=== PATIENT | female | born 1995 | race Caucasian/White ===

== ENCOUNTER 2021-11-08 21:46 | Emergency (ER) | payer MEDICAID, OTHER ==
[~2021-11-08] VITALS: Ht 180.3 cm; Wt 113.4 kg
[2021-11-08 21:54] VITALS: BP 131/81
--- NOTE | 2021-11-08 22:31 | NUR ---
Dr. Bhatt at chair B to exam patient.
[2021-11-08] MEDS ORDERED: IBUP-2218 PO (22:50)
[2021-11-08] MEDS ORDERED: KETOROLAC 60 MG/2 ML VIAL IM ONE (22:50)
[2021-11-08 23:29] VITALS: BP 131/81
== END 2021-11-08 23:29 | disposition home or self-care (01) ==
LOC: MED 21:46
DX: M54.50 Low back pain, unspecified (principal); Z79.899 Other long term (current) drug therapy
CPT/HCPCS: 81025; 96372; 99283; J1885

== ENCOUNTER 2022-10-29 12:32 | Emergency (ER) | payer MEDICAID ==
[~2022-10-29] VITALS: Ht 177.8 cm; Wt 83.9 kg
[~2022-10-29 12:32] MED LIST: IBUP-2218 PO
[2022-10-29 12:39] VITALS: BP 131/75
[2022-10-29] MEDS ORDERED: KETOROLAC 30 MG/ML VIAL IM ONE (14:20)
[2022-10-29 14:33] LABS: APPEARANCE,URINE CLEAR (CLEAR); BILIRUBIN,URINE NEGATIVE (NEGATIVE); BLOOD, URINE TRACE-I (NEGATIVE); COLOR,URINE YELLOW (YELLOW); LEUKOCYTE ESTERASE ,URINE 2+ (NEGATIVE); NITRITE, URINE NEGATIVE (NEGATIVE); UGLUCOSE NEGATIVE (NEGATIVE)
[2022-10-29 14:50] LABS: RBC,URINE 0-5 /HPF (0-5); WBC,URINE 0-5 /HPF (0-5)
[2022-10-29] MEDS ORDERED: GABA100C PO (15:15)
[2022-10-29] MEDS ORDERED: PYR100 PO (15:15)
[2022-10-29] MEDS ORDERED: NITR100C7 PO (15:15)
[2022-10-29] MEDS ORDERED: IBUP-2213 PO (15:15)
[2022-10-29 15:22] VITALS: BP 118/68
--- NOTE | 2022-10-29 15:23 | NUR ---
Patient discharged with v/s stable. Written and verbal after care instructions given and explained. Patient alert, oriented and verbalized understanding of instructions. Ambulatory with steady gait. All questions addressed prior to discharge. ID band removed. Patient advised to follow up with PMD. Rx of MACROBID, PYRIDIUM, NEURONTIN given. Patient educated on indication of medication including possible reaction and side effects. Opportunity to ask questions provided and answered.
== END 2022-10-29 15:22 | disposition home or self-care (01) ==
LOC: MED 12:32
DX: N39.0 Urinary tract infection, site not specified (principal); M54.16 Radiculopathy, lumbar region; Z79.899 Other long term (current) drug therapy; Z79.2 Long term (current) use of antibiotics; Z79.1 Long term (current) use of non-steroidal anti-inflammatories (NSAID)
CPT/HCPCS: 81001; 81025; 87086; 96372; 99283; J1885

== ENCOUNTER 2023-07-24 01:07 | Emergency (ER) | payer SELFPAY ==
[~2023-07-24] VITALS: Ht 180.3 cm; Wt 129.3 kg
[~2023-07-24 01:07] MED LIST changes: +GABA100C PO; +IBUP-2213 PO; +NITR100C7 PO; +PYR100 PO
[2023-07-24 01:17] VITALS: BP 114/67; PULSE 71; RESP 12; TEMP 97.9; O2SAT 100
[2023-07-24] MEDS ORDERED: BUPIVACAINE-MPF 0.25% 30 ML VIAL INJ ONE (01:55)
[2023-07-24] MEDS ORDERED: IBUPROFEN 600 MG TAB PO ONE (01:55)
[2023-07-24] MEDS ORDERED: PENICILLIN V POTASSIUM 250 MG TAB PO ONE (01:55)
[2023-07-24] MEDS ORDERED: ACET-8905 PO (02:29)
[2023-07-24] MEDS ORDERED: PENI500T20 PO (02:29)
[2023-07-24] MEDS ORDERED: IBUP-2218 PO (02:29)
== END 2023-07-24 02:35 | disposition home or self-care (01) ==
LOC: MED 01:07
DX: K02.9 Dental caries, unspecified (principal); Z79.899 Other long term (current) drug therapy; Z79.1 Long term (current) use of non-steroidal anti-inflammatories (NSAID); Z79.2 Long term (current) use of antibiotics
CPT/HCPCS: 64400; 99284; J3490

== ENCOUNTER 2023-11-24 15:29 | Emergency (ER) | payer MEDICAID ==
[~2023-11-24] VITALS: Ht 177.8 cm; Wt 99.8 kg
[~2023-11-24 15:29] MED LIST changes: +ACET-8905 PO; +PENI500T20 PO
[2023-11-24 15:36] VITALS: BP 115/68; PULSE 85; RESP 18; TEMP 96.3; O2SAT 99
[2023-11-24] MEDS: ACETAMINOPHEN/CODEINE 300/30MG 1 TAB PO ONE (16:18)
[2023-11-24 16:26] LABS: BILIRUBIN,URINE NEGATIVE (NEGATIVE); BLOOD, URINE 2+ (NEGATIVE); COLOR,URINE YELLOW (YELLOW); LEUKOCYTE ESTERASE ,URINE 1+ (NEGATIVE); NITRITE, URINE NEGATIVE (NEGATIVE); PROTEIN,URINE NEGATIVE (NEGATIVE); UGLUCOSE NEGATIVE (NEGATIVE); UROBILINOGEN,URINE 0.2 EU/dL (0.2 - 1)
[2023-11-24 16:27] LABS: APPEARANCE,URINE SLIGHTLY CLOUDY (CLEAR)
[2023-11-24 16:28] LABS: WBC,URINE 0-5 /HPF (0-5)
[2023-11-24 16:29] LABS: BACTERIA,URINE 1+ /HPF (None Seen); MUCUS,URINE None Seen /LPF (None Seen); SQUAMOUS EPITHELIAL CELL,UR 0-3 (FEW) /LPF (0-3 (FEW))
[2023-11-24 17:06] LABS: BASOPHILS % (AUTO) 0.5 % (0.0-2.0); EOSINOPHILS # (AUTO) 0.2 K/uL (0-0.4); EOSINOPHILS % (AUTO) 2.8 % (0.0-4.0); HEMATOCRIT 34.7 % (36-48); HEMOGLOBIN 11.3 g/dL (12.0-16.0); LYMPHOCYTES # (AUTO) 2.6 K/uL (2.5-16.5); MEAN CORPUSCULAR HEMOGLOBIN 25 pg (27-31); MEAN CORPUSCULAR HGB CONC 33 g/dL (33-37); MEAN CORPUSCULAR VOLUME 77.2 fL (80-94); MONOCYTES # (AUTO) 0.6 K/uL (0.8-1.0); MONOCYTES % (AUTO) 7.3 % (1.7-9.3); NEUTROPHILS # (AUTO) 5.3 K/uL (1.8-7.7); NEUTROPHILS % (AUTO) 60.4 % (42.2-75.2); PLATELET COUNT (AUTO) 273 K/uL (140-450); RED BLOOD CELL COUNT(AUTO) 4.49 MIL/uL (4.20-5.40); RED CELL DISTRIBUTION WIDTH 14.7 % (11.6-13.7); WHITE BLOOD COUNT (AUTO) 8.8 K/uL (4.8-10.8)
[2023-11-24] MEDS ORDERED: METR-435 PO (17:33)
[2023-11-24] MEDS ORDERED: CEPH-588 PO (17:33)
[2023-11-24] MEDS ORDERED: IBUP-2218 PO (17:33)
[2023-11-24 17:42] VITALS: BP 121/65; PULSE 94; RESP 18; TEMP 97.2; O2SAT 99
== END 2023-11-24 17:42 | disposition home or self-care (01) ==
LOC: MED 15:29
DX: N93.9 Abnormal uterine and vaginal bleeding, unspecified (principal); N39.0 Urinary tract infection, site not specified; N88.8 Other specified noninflammatory disorders of cervix uteri; N76.0 Acute vaginitis; Z79.1 Long term (current) use of non-steroidal anti-inflammatories (NSAID); Z79.899 Other long term (current) drug therapy
CPT/HCPCS: 36415; 76856; 81001; 81025; 85025; 87086; 87210; 87491; 93976; 99284; Q0092

== ENCOUNTER 2024-05-19 09:20 | Inpatient (IN) | payer MEDICAID ==
[~2024-05-19] VITALS: Ht 180.3 cm; Wt 113.4 kg
[~2024-05-19 09:20] MED LIST changes: +CEPH-588 PO; +METR-435 PO
[2024-05-19 09:26] VITALS: BP 119/64; PULSE 75; RESP 18; TEMP 98.6; O2SAT 98
[2024-05-19 10:40] LABS: BILIRUBIN,URINE NEGATIVE (NEGATIVE); BLOOD, URINE 2+ (NEGATIVE); COLOR,URINE YELLOW (YELLOW); LEUKOCYTE ESTERASE ,URINE 2+ (NEGATIVE); NITRITE, URINE NEGATIVE (NEGATIVE); PROTEIN,URINE NEGATIVE (NEGATIVE); UGLUCOSE NEGATIVE (NEGATIVE); UROBILINOGEN,URINE 0.2 EU/dL (0.2 - 1)
[2024-05-19 10:40] LABS: BASOPHILS % (AUTO) 0.6 % (0.0-2.0); EOSINOPHILS # (AUTO) 0.2 K/uL (0-0.4); EOSINOPHILS % (AUTO) 3.1 % (0.0-4.0); HEMATOCRIT 34.8 % (36-48); HEMOGLOBIN 11.1 g/dL (12.0-16.0); LYMPHOCYTES # (AUTO) 1.8 K/uL (2.5-16.5); LYMPHOCYTES % (AUTO) 25.8 % (20.5-51.1); MEAN CORPUSCULAR HEMOGLOBIN 24 pg (27-31); MEAN CORPUSCULAR HGB CONC 32 g/dL (33-37); MEAN CORPUSCULAR VOLUME 76.3 fL (80-94); MONOCYTES # (AUTO) 0.5 K/uL (0.8-1.0); MONOCYTES % (AUTO) 7.1 % (1.7-9.3); NEUTROPHILS # (AUTO) 4.4 K/uL (1.8-7.7); NEUTROPHILS % (AUTO) 63.4 % (42.2-75.2); PLATELET COUNT (AUTO) 252 K/uL (140-450); RED BLOOD CELL COUNT(AUTO) 4.57 MIL/uL (4.20-5.40); RED CELL DISTRIBUTION WIDTH 15.4 % (11.6-13.7)
[2024-05-19 10:50] LABS: APPEARANCE,URINE SLIGHTLY CLOUDY (CLEAR)
[2024-05-19 10:56] LABS: BACTERIA,URINE 2+ /HPF (None Seen); MUCUS,URINE None Seen /LPF (None Seen); SQUAMOUS EPITHELIAL CELL,UR 4-10 (MOD) /LPF (0-3 (FEW))
[2024-05-19 11:06] LABS: ALBUMIN 3.3 g/dL (3.4-5.0); ANION GAP 10.3 (8-16); CALCIUM 8.3 mg/dL (8.5-10.1); CARBON DIOXIDE 26.2 mmol/L (21-32); CREATININE 0.8 mg/dL (0.6-1.3); POTASSIUM 3.5 mmol/L (3.5-5.1); TOTAL BILIRUBIN 0.2 mg/dL (0.0-1.0); TOTAL PROTEIN, SERUM 6.7 g/dL (6.4-8.2)
[2024-05-19] MEDS ORDERED: PIPERACILLIN/TAZOBACTAM 3.375 GM VIAL IV ONE (12:29)
[2024-05-19] MEDS: PIPERACILLIN/TAZOBACTAM 3.375 GM in DEXTROSE 5% 50 ML IV ONE (12:38)
[2024-05-19] MEDS ORDERED: LORazepam 1 MG TAB PO PRN (13:35)
[2024-05-19] MEDS ORDERED: ZOLPIDEM 5 MG TAB PO PRN (13:35)
[2024-05-19] MEDS ORDERED: MAGNESIUM OXIDE 400 MG TAB PO PRN (13:35)
[2024-05-19] MEDS ORDERED: ONDANSETRON 4 MG/2 ML VIAL IVP PRN (13:35)
[2024-05-19] MEDS ORDERED: POTASSIUM CHLORIDE 10 MEQ TABER PO PRN (13:35)
[2024-05-19 14:26] LABS: INR 0.99 (0.8-1.2); PROTHROMBIN TIME 10.4 secs (10.8-13.4)
[2024-05-19] MEDS: FOLIC ACID 1 MG TAB PO SCH (15:33)
[2024-05-19] MEDS: NACL 0.9% 1,000 ML IV SCH (15:58)
[2024-05-19 16:00] VITALS: BP 108/51; PULSE 53; RESP 18; TEMP 97; O2SAT 98
[2024-05-19 16:06] VITALS: PULSE 70; RESP 18; O2SAT 98
[2024-05-19] MEDS: PIPERACILLIN/TAZOBACTAM 3.375 GM in DEXTROSE 5% 50 ML IV SCH (17:01)
[2024-05-19 20:00] VITALS: BP 89/51; PULSE 50; PULSE 62; RESP 18; TEMP 97.9; O2SAT 98; O2SAT 99
[2024-05-19] MEDS ORDERED: PIPERACILLIN/TAZOBACTAM 2.25 GM in DEXTROSE 5% 50 ML IV SCH (21:00)
[2024-05-19] MEDS: ACETAMINOPHEN 325 MG TAB PO PRN (22:03)
[2024-05-20] VITALS: BP 101/74; PULSE 62; RESP 18; TEMP 96.5; O2SAT 98
[2024-05-20] MEDS: HYDROcodone/APAP 5/325 MG 1 TAB TAB PO PRN (01:03)
[2024-05-20 04:00] VITALS: BP 98/50; PULSE 69; RESP 16; TEMP 95.4; O2SAT 100
[2024-05-20 07:23] LABS: BASOPHILS # (AUTO) 0.1 K/uL (0.00-0.22); BASOPHILS % (AUTO) 0.7 % (0.0-2.0); EOSINOPHILS # (AUTO) 0.3 K/uL (0-0.4); EOSINOPHILS % (AUTO) 3.9 % (0.0-4.0); HEMATOCRIT 32.9 % (36-48); HEMOGLOBIN 10.7 g/dL (12.0-16.0); LYMPHOCYTES # (AUTO) 2.4 K/uL (2.5-16.5); MEAN CORPUSCULAR HEMOGLOBIN 25 pg (27-31); MEAN CORPUSCULAR HGB CONC 32 g/dL (33-37); MEAN CORPUSCULAR VOLUME 76.4 fL (80-94); MONOCYTES # (AUTO) 0.4 K/uL (0.8-1.0); MONOCYTES % (AUTO) 6.1 % (1.7-9.3); NEUTROPHILS # (AUTO) 4.1 K/uL (1.8-7.7); NEUTROPHILS % (AUTO) 56.3 % (42.2-75.2); PLATELET COUNT (AUTO) 236 K/uL (140-450); RED BLOOD CELL COUNT(AUTO) 4.31 MIL/uL (4.20-5.40); RED CELL DISTRIBUTION WIDTH 15.9 % (11.6-13.7); WHITE BLOOD COUNT (AUTO) 7.3 K/uL (4.8-10.8)
[2024-05-20 07:52] LABS: ALBUMIN 3.1 g/dL (3.4-5.0); ANION GAP 11.4 (8-16); CARBON DIOXIDE 27.2 mmol/L (21-32); CREATININE 0.8 mg/dL (0.6-1.3); MAGNESIUM 1.8 mg/dL (1.8-2.4); PHOSPHORUS 3.8 mg/dL (2.5-4.9); POTASSIUM 3.6 mmol/L (3.5-5.1); TOTAL BILIRUBIN 0.5 mg/dL (0.0-1.0); TOTAL PROTEIN, SERUM 6.3 g/dL (6.4-8.2)
[2024-05-20 08:00] VITALS: BP 89/51; PULSE 50; PULSE 60; RESP 18; TEMP 97.9; O2SAT 98; O2SAT 99
[2024-05-20] MEDS: CYANOCOBALAMIN 1,000 MCG TAB PO SCH (08:25)
== END 2024-05-20 09:50 | disposition left against medical advice (07) | DRG 254 ==
LOC: MED 09:20 → MTU 13:35
PROVIDERS: ADMIT Student in an Organized Health Care Education/Training Program; ATTEND Student in an Organized Health Care Education/Training Program
DX: K35.80 Unspecified acute appendicitis (principal); E44.1 Mild protein-calorie malnutrition; D64.9 Anemia, unspecified; N39.0 Urinary tract infection, site not specified; Z53.29 Procedure and treatment not carried out because of patient's decision for other reasons; Z68.34 Body mass index [BMI] 34.0-34.9, adult; Z79.899 Other long term (current) drug therapy
CPT/HCPCS: 36415; 71045; 80053; 81001; 83690; 83735; 84100; 85025; 85610; 86886; 86900; 86901; 87040; 87081; 87086; J2543; J3420; J7060; Q9967